=== PATIENT | male | born 1980 | race Two or more races ===

== ENCOUNTER 2017-05-05 20:23 | Emergency (ER) | payer SELFPAY ==
[~2017-05-05] VITALS: Ht 185.4 cm; Wt 83.3 kg
[2017-05-05 22:07] LABS: MICROSCOPIC NOT IND
[2017-05-05 22:08] LABS: CULTURE INDICATED? NO
[2017-05-05 22:18] LABS: AMPHETAMINE SCREEN, URINE Negative (Negative); BARBITURATE SCREEN, URINE Negative (Negative); BENZODIAZEPINE SCREEN, URINE Negative (Negative); CANNABINOID SCREEN, URINE Positive (Negative); COCAINE SCREEN, URINE Negative (Negative); METHADONE SCREEN, URINE Negative (Negative); OPIATE SCREEN, URINE Negative (Negative)
[2017-05-05 22:24] LABS: BASOPHILS # (AUTO) 0.03 x10^3/uL (0-0.1); BASOPHILS % (AUTO) 0 % (0-1); EOSINOPHILS % (AUTO) 1 % (1-7); LYMPHOCYTES # (AUTO) 2.59 x10^3/uL (1-3.4); LYMPHOCYTES % (AUTO) 28 % (22-44); MD NO; MEAN CORPUSCULAR HEMOGLOBIN 31.4 pg (27.5-34.5); MEAN CORPUSCULAR HGB CONC 34.2 g/dL (33.2-36.2); MEAN CORPUSCULAR VOLUME 91.8 fL (81-97); MEAN PLATELET VOLUME 8.6 fL (7.4-10.4); MONOCYTES # (AUTO) 0.72 x10^3/uL (0.2-0.8); MONOCYTES % (AUTO) 8 % (2-9); NEUTROPHILS # (AUTO) 5.84 x10^3/uL (1.8-6.8); NEUTROPHILS % (AUTO) 63 % (42-75); PLATELET COUNT 240 x10^3/uL (130-400); RED BLOOD COUNT 4.99 x10^6/uL (4.38-5.82); RED CELL DISTRIBUTION WIDTH 13.2 % (9.4-14.8)
[2017-05-05 22:36] LABS: ALBUMIN 3.8 g/dL (3.4-5.0); ANION GAP 7 mmol/L (5-15); CALCIUM 8.8 mg/dL (8.5-10.1); CHLORIDE 103 mmol/L (98-107)
[2017-05-05 22:38] LABS: SALICYLATE LEVEL < 1.7 mg/dL (2.8-20.0)
[2017-05-05 22:39] LABS: ACETAMINOPHEN < 2 mcg/mL (10-30); ALANINE AMINOTRANSFERASE 67 U/L (12-78); ALKALINE PHOSPHATASE 42 U/L (45-117); TOTAL PROTEIN 7.3 g/dL (6.4-8.2)
[2017-05-06 07:43] VITALS: BP 120/38
== END 2017-05-06 07:46 | disposition home or self-care (01) ==
LOC: EDSEX 20:23 → ED 23:59
DX: F32.0 Major depressive disorder, single episode, mild (principal); F12.220 Cannabis dependence with intoxication, uncomplicated; F11.20 Opioid dependence, uncomplicated; M25.552 Pain in left hip; F41.9 Anxiety disorder, unspecified; Z59.0 Homelessness
CPT/HCPCS: 36415; 80053; 80307; 80329; 81003; 85025; 99285; G0479; G0480